=== PATIENT | male | born 1990 | race Hispanic/Latino ===

== ENCOUNTER 2017-06-28 00:09 | Emergency (ER) | payer OTHER ==
[2017-06-28 00:24] VITALS: TEMP 97.9
[2017-06-28] MEDS ORDERED: Iohexol 240 (50 ml) PO ONE (01:14)
[2017-06-28] MEDS ORDERED: Sodium Chloride 0.9% 1,000 ML IV STA (01:16)
[2017-06-28] MEDS ORDERED: Morphine 4 MG/ML VIAL IV ONE (01:16)
[2017-06-28] MEDS ORDERED: Iohexol 240 (50 ml) ONE (01:30)
[2017-06-28] MEDS ORDERED: Morphine 4 MG/ML VIAL ONE (01:31)
[2017-06-28 02:01] VITALS: RESP 20
[2017-06-28 02:01] LABS: BASO % 0.3 % (0.0-2.0); EOS # 0.2 K/uL (0.0-0.7); EOS % 1.6 % (0.0-4.0); HEMOGLOBIN 15.9 g/dL (12.0-18.0); LYMPH # 2.1 K/uL (1.0-4.3); LYMPH % 22.3 % (20.0-40.0); MEAN CELL VOLUME 85.3 fl (80.0-94.0); MEAN CORPUSCULAR HEMOGLOBIN 29.7 pg (27.0-31.0); MEAN CORPUSCULAR HGB CONC 34.8 g/dL (33.0-37.0); MEAN PLATELET VOLUME 10.1 fl (7.2-11.7); MONO # 1.4 K/uL (0.0-0.8); MONO % 14.1 % (0.0-10.0); NEUT # 5.9 K/uL (1.8-7.0); NEUT % 61.7 % (50.0-75.0); RBC 5.36 Mil/uL (4.40-5.90); WHITE BLOOD COUNT 9.6 K/uL (4.8-10.8)
[2017-06-28 02:04] LABS: URINE BILIRUBIN NEGATIVE (NEGATIVE); URINE BLOOD SMALL (NEGATIVE); URINE CLARITY CLEAR (Clear); URINE COLOR STRAW (YELLOW); URINE GLUCOSE (UA) NEG (Normal); URINE LEUKOCYTE ESTERASE TRACE Leu/uL (Negative); URINE PROTEIN 30 mg/dL (NEGATIVE); URINE UROBILINOGEN 0.2-1.0 mg/dL (0.2-1.0)
[2017-06-28 02:11] LABS: ALB/GLOB RATIO 1.2 (1.0-2.1); ALBUMIN 4.3 g/dL (3.5-5.0); ALT/SGPT 118 U/L (21-72); AST/SGOT 40 U/L (17-59); BLOOD UREA NITROGEN 16 mg/dl (9-20); GFR AFRICAN-AMERICAN > 60; GFR NON-AFRICAN AMERICAN 56
--- NOTE | 2017-06-28 03:11 | ED PDOC ---
HPI: Back Time Seen by Provider: 06/28/17 00:20 Chief Complaint (Nursing): Back Pain Chief Complaint (Provider): Back Pain History Per: Patient History/Exam Limitations: no limitations Onset/Duration Of Symptoms: Days (x 1) Current Symptoms Are (Timing): Still Present Additional Complaint(s): 27 year old male with a past medical history of Crohn's disease, pancreatitis and migraines presents to the ED complaining of left flank pain with associated nausea and chills, onset last night. Patient reports the pain is radiating to the groin. Denies fever, vomiting or diarrhea. PMD: Dr. Mikhail CARLSON ([facility]) Past Medical History Vital Signs: Last Vital Signs Temp 97.9 F 06/28/17 00:21 Pulse 101 H 06/28/17 02:00 Resp 20 06/28/17 02:00 BP 133/82 06/28/17 02:00 Pulse Ox 100 06/28/17 02:00 - Medical History PMH: Crohn's Disease, Migraine, Pancreatitis Denies: Chronic Kidney Disease - Surgical History Surgical History: Endoscopy - Family History Family History: States: Unknown Family Hx - Social History Current smoker - smoking cessation education provided: No Alcohol: None Drugs: Denies - Home Medications Home Medications: Ambulatory Orders Medication Instructions Recorded Ciprofloxacin HCl [Cipro] 500 mg PO BID #20 tab 06/28/17 - Allergies Allergies/Adverse Reactions: Allergies Allergy/AdvReac Type Severity Reaction Status Date / Time No Known Allergies Allergy Verified 06/28/17 00:20 Review of Systems ROS Statement: Except As Marked, All Systems Reviewed And Found Negative Musculoskeletal: Positive for: Back Pain (left flank) Physical Exam - Reviewed Nursing Documentation Reviewed: Yes Vital Signs Reviewed: Yes - Physical Exam Appears: Positive for: Non-toxic, No Acute Distress Head Exam: Positive for: ATRAUMATIC, NORMOCEPHALIC Skin: Positive for: Normal Color, Warm, Dry Eye Exam: Positive for: EOMI, Normal appearance, PERRL Neck: Positive for: Normal, Painless ROM, Supple Cardiovascular/Chest: Positive for: Regular Rate, Rhythm. Negative for: Murmur Respiratory: Positive for: Normal Breath Sounds. Negative for: Respiratory Distress Gastrointestinal/Abdominal: Positive for: Normal Exam, Soft Back: Positive for: Other (left flank tenderness) Extremity: Positive for: Normal ROM. Negative for: Deformity Neurologic/Psych: Positive for: Alert, Oriented. Negative for: Motor/Sensory Deficits - Laboratory Results Result Diagrams: 06/28/17 01:45 06/28/17 01:45 - ECG O2 Sat by Pulse Oximetry: 100 (RA) Pulse Ox Interpretation: Normal Medical Decision Making Medical Decision Making: Time: 00:36 Initial Plan: abdominal pain rule out kidney stone and intra-abdominal abscess --Abdomen/ Pelvis CT --CMP --CBC with differentials --Morphine 4 mg IV --Normal Saline IV 999 mls/hr --Omnipaque 2 50 ml PO --Zofran Inj 4 mg IV --Urine culture --Urinalysis Abd/Pelvis Ct FINDINGS: The liver is decreased in attenuation consistent with fatty infiltration. The spleen is normal. The pancreas is normal. No gallstones. No hydronephrosis. There is moderate bilateral perinephric stranding the amount of which is concerning for pyelonephritis. There is also suggestion of possible striated nephrograms also concerning for pyelonephritis. Recommend correlation with urinalysis. Diverticulosis. Motion produces haziness of areas of the left colon however no definite diverticulitis identified. A normal appendix is identified series 3 images 145-155, coronal images 60 through 70. IMPRESSION: Moderate bilateral perinephric stranding concerning for pyelonephritis. Recommend correlation with urinalysis. pt given first dose of iv abx in the ER and dc home with po abx pt tolerated po and pain improved discussed results with patient Scribe Attestation: Documented by Mireya Goodrich, acting as a scribe for Yasmeen Lincoln MD. Provider Scribe Attestation: All medical record entries made by the Scribe were at my direction and personally dictated by me. I have reviewed the chart and agree that the record accurately reflects my personal performance of the history, physical exam, medical decision making, and the department course for this patient. I have also personally directed, reviewed, and agree with the discharge instructions and disposition. Disposition - Clinical Impression Clinical Impression: Pyelonephritis - Patient ED Disposition Is Patient to be Admitted: Transfer of Care Counseled Patient/Family Regarding: Studies Performed, Diagnosis, Need For Followup - Disposition Referrals: Inna Jean MD [Medical Doctor] - Marty Elizodno MD [Primary Care Provider] - Disposition: Transfer of Care Disposition Time: 07:00 Condition: IMPROVED Additional Instructions: follow up with your primary doctor in 1-2 days/ as well as with urologist return to the ED with any worsening or concerning symptoms Prescriptions: Ciprofloxacin HCl [Cipro] 500 mg PO BID #20 tab Instructions: Kidney Infection (DC) Forms: [employer] ([place]rian) Patient Signed Over To: Malka Gold Handoff Comments: pending discharge after full course of IV antibiotics
[2017-06-28] MEDS ORDERED: Iohexol 300 100 ML IJ ONE (03:58)
--- NOTE | 2017-06-28 05:26 | CT ---
EXAM: CT Abdomen and Pelvis With Intravenous Contrast EXAM DATE/TIME: 06/28/2017 1:15 AM CLINICAL HISTORY: 27 years old, male; Pain; Abdominal pain; Acute; Additional info: Abdominal pain, llq, history of crohns disease TECHNIQUE: Axial computed tomography images of the abdomen and pelvis with intravenous contrast. All CT scans at this facility use one or more dose reduction techniques, viz.: automated exposure control; ma/kV adjustment per patient size (including targeted exams where dose is matched to indication; i.e. head); or iterative reconstruction technique. Coronal and sagittal reformatted images were created and reviewed. CONTRAST: 95 mL of omnipaque 300 administered intravenously. COMPARISON: No relevant prior studies available. FINDINGS: The liver is decreased in attenuation consistent with fatty infiltration. The spleen is normal. The pancreas is normal. No gallstones. No hydronephrosis. There is moderate bilateral perinephric stranding the amount of which is concerning for pyelonephritis. There is also suggestion of possible striated nephrograms also concerning for pyelonephritis. Recommend correlation with urinalysis. Diverticulosis. Motion produces haziness of areas of the left colon however no definite diverticulitis identified. A normal appendix is identified series 3 images 145-155, coronal images 60 through 70. IMPRESSION: Moderate bilateral perinephric stranding concerning for pyelonephritis. Recommend correlation with urinalysis.
[2017-06-28] MEDS ORDERED: cefTRIAXone (Rocephin) 1 gm Inj ONE (05:54)
[2017-06-28 07:13] VITALS: BP 160/98; PULSE 100
[2017-07-01 20:30] VITALS: O2SAT 100
== END 2017-06-28 07:13 | disposition home or self-care (01) ==
LOC: H.ER 00:09
DX: N12 Tubulo-interstitial nephritis, not specified as acute or chronic (principal); K50.90 Crohn's disease, unspecified, without complications; K85.90 Acute pancreatitis without necrosis or infection, unspecified
CPT/HCPCS: 74177; 80053; 81003; 85025; 87086; 96361; 96365; 96375; 99283; J0696; J1885; J2270; J2405; J7040; Q9966; Q9967